=== PATIENT | female | born 1990 | race Two or more races ===

== ENCOUNTER → 2017-03-19 | Outpatient (CLI) | payer SELFPAY ==
--- NOTE | 2017-03-19 17:58 | RADIOLOGY REPORT (SQ) ---
EXAM DESCRIPTION: U/S [id number] TRNABD 1GES W/ODOP COMPLETED DATE/TIME: 03/19/2017 5:05 pm REASON FOR STUDY: ENCOUNTER FOR SUPERVISION OF OTHER NORMAL , FIRST TRIMESTER Z34.81 ENCOU NTER FOR SUPRVSN OF NORMAL , FIRST TRIM COMPARISON: None. TECHNIQUE: Transabdominal static and realtime grayscale images acquired of the pelvis. Additional se lected spectral and color Doppler images recorded. All images stored on PACs. bHCG: Not available. LIMITATIONS: None. FINDINGS: FETUS: Living intrauterine . EGA: 11 weeks 2 days by crown-rump length. ROSSI: Estimated date of delivery 10/02/2017. FHR: 162 beats per minute. SUBCHORIONIC BLEED: Yes . SIZE OF BLEED: 1.5 cm subchorionic hemorrhage is noted. UTERUS: 14.5 x 8.7 x 6.4 cm. No masses. No anomalies. CERVICAL LENGTH: 2.4 cm. Closed. RIGHT ADNEXA: 3.5 x 2.8 x 2.5 cm. There is a 2.9 x 1.8 x 1.6 cm cyst. No adnexal free fluid. No adnexal masses. LEFT ADNEXA: Not seen. No adnexal free fluid. No adnexal masses. FREE FLUID: None. OTHER: No other significant finding. IMPRESSION: There is a live intrauterine gestation of 11 weeks 6 days with an estimated date of deli very of 10/02/2017. A small subchorionic bleed is present. Trimester of : First - 0 to 13 weeks. TECHNICAL DOCUMENTATION: JOB ID: [id number]- All Rights Reserved
== END ==
LOC: RAD 15:55
PROVIDERS: ATTEND Nurse Practitioner Women's Health
DX: Z34.81 Encounter for supervision of other normal pregnancy, first trimester (principal)
CPT/HCPCS: 76801